=== PATIENT | female | born 1945 | race Caucasian/White ===

== ENCOUNTER 2018-07-24 09:27 | Emergency (ER) | payer MEDICARE, OTHER, SELFPAY ==
[2018-07-24 09:30] VITALS: BP 148/85; PULSE 65; RESP 18; TEMP 36.7; O2SAT 100
[2018-07-24 09:49] LABS: Bilirubin Negative (Negative); Blood Negative (Negative); Clarity Clear; Glucose Negative (Negative); Ketones Trace mg/dL (Negative); Leukocyte Esterase Negative (Negative); Nitrite Negative (Negative); Specific Gravity >= 1.030 (1.005-1.025); Urobilinogen 0.2 EU/dL (Up TO 0.2)
[2018-07-24 10:01] LABS: Bacteria Moderate HPF (Negative); C & S Indicated? Yes; Casts Negative LPF (Negative); Crystals Negative HPF (Negative); Epithelial Cells Few HPF (Negative); Mucus Moderate (Negative); RBC Negative (0-2)
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
[2018-07-24] MEDS: LEVOFLOXACIN 500 MG, LEVOFLOXACIN 250 MG 750 MG PO (10:37)
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
[2018-07-24 11:13] LABS: ALT 19 U/L (12-78); AST 21 U/L (15-37); Albumin 3.8 g/dL (3.4-5.0); Alkaline Phosphatase 88 U/L (46-116); Anion Gap 6.8 mmol/L (3-11); BUN 20 mg/dL (7-18); Bilirubin, Total 0.6 mg/dL (0.2-1.0); CO2 27.2 mmol/L (21.0-32.0); CREATININE 1.12 mg/dL (0.55-1.02); Calcium 8.6 mg/dL (8.5-10.1); Chloride 104 mmol/L (98-107); Estimated GFR 47.96 (mL/min/1.73m2); Glucose 103 mg/dL (70-100); Potassium 3.9 mmol/L (3.5-5.1); Sodium 138 mmol/L (136-145); Total Protein 7.1 g/dL (6.4-8.2)
[2018-07-24 11:16] LABS: Abs Immature Grans 0.01 k/cumm (0.0-0.09); Absolute Basophil Count 0.02 k/cumm (0.0-0.2); Absolute Lymphocyte Count 0.76 k/cumm (1.2-3.4); Absolute Monocyte Count 0.39 k/cumm (0.11-0.7); Absolute Neutrophil Count 3.19 k/cumm (1.2-6.7); Basophils % 0.4; Eosinophils % 2.2; HCT 40.1 % (36.0-46.0); HGB 13.6 g/dL (12.0-15.5); Immature Grans % 0.2; Mean Corp. HGB Concentration 33.9 g/dL (32.0-36.0); Mean Corpuscular Hemoglobin 32.3 pg (27.0-33.0); Mean Corpuscular Volume 95.2 fL (80-95); Mean Platelet Volume 10.2 fL (8.0-11.0); Monocytes % 8.7; Neutrophils % 71.5; Platelet Count 189 x1000/uL (130-400); RBC 4.21 m/cumm (4.00-5.20); RBC Distribution Width 12.3 % (11.7-14.6); White Blood Cell Count 4.47 k/cumm (4.4-10.8)
[2018-07-24 12:07] VITALS: BP 148/85; PULSE 65; RESP 18; TEMP 36.7; O2SAT 100
== END 2018-07-24 12:07 | disposition home or self-care (01) ==
PROVIDERS: Emergency Provider Emergency Medicine; PCP Family Medicine
DX: N39.0 Urinary tract infection, site not specified (principal); B96.4 Proteus (mirabilis) (morganii) as the cause of diseases classified elsewhere; R41.0 Disorientation, unspecified; G20 Parkinson's disease
CPT/HCPCS: 36415; 80053; 87077; 99283; 81003; 81015; 85025; 87086; 87186

== ENCOUNTER 2018-10-04 10:19 | Outpatient (CLI) | payer MEDICARE, OTHER, SELFPAY ==
[2018-10-04 12:17] LABS: Ferritin 51 ng/mL (8-388)
== END 2018-10-04 10:39 ==
PROVIDERS: PCP Family Medicine; Visit Provider Nurse Practitioner
DX: M25.50 Pain in unspecified joint (principal)
CPT/HCPCS: 36415; 82728

== ENCOUNTER 2018-11-02 02:59 | Outpatient (CLI) | payer MEDICARE, OTHER, SELFPAY | END 2018-11-02 03:19 | PROVIDERS: PCP Family Medicine; Visit Provider Family Medicine | DX: G47.61 Periodic limb movement disorder (principal); Z53.8 Procedure and treatment not carried out for other reasons | CPT/HCPCS: 36415; 82728; 83540; 83550; 84443 ==

== ENCOUNTER 2018-11-09 07:33 | Outpatient (CLI) | payer MEDICARE, OTHER, SELFPAY | END 2018-11-09 07:53 | PROVIDERS: PCP Family Medicine; Visit Provider Family Medicine | DX: G47.61 Periodic limb movement disorder (principal); D75.89 Other specified diseases of blood and blood-forming organs; Z53.8 Procedure and treatment not carried out for other reasons | CPT/HCPCS: 82728; 83540; 83550; 84443 ==

== ENCOUNTER 2019-01-26 02:15 | Outpatient (CLI) | payer MEDICARE, OTHER, SELFPAY ==
[2019-01-26 14:27] LABS: Iron 68 ug/dL (50-175); Total Iron Binding Capacity 259 ug/dL (250-450); Transferrin Sat 26 % (15-50)
[2019-01-26 14:43] LABS: Ferritin 133 ng/mL (8-388)
== END 2019-01-26 02:35 ==
PROVIDERS: PCP Family Medicine; Visit Provider Family Medicine
DX: R53.83 Other fatigue (principal); D50.9 Iron deficiency anemia, unspecified; G20 Parkinson's disease; G25.81 Restless legs syndrome; M25.50 Pain in unspecified joint
CPT/HCPCS: 36415; 82728; 83540; 83550

== ENCOUNTER 2019-03-01 08:03 | Outpatient (REF) | payer MEDICARE, OTHER, SELFPAY ==
[2019-03-01 09:55] LABS: Bilirubin Negative (Negative); Blood Negative (Negative); Clarity Clear; Glucose Negative (Negative); Ketones Negative (Negative); Leukocyte Esterase Negative (Negative); Nitrite Negative (Negative); Specific Gravity 1.015 (1.005-1.025); Urobilinogen 0.2 EU/dL (Up TO 0.2); pH 6.5 (5-8)
== END 2019-03-01 08:23 ==
LOC: LBN 08:03
PROVIDERS: PCP Family Medicine; Visit Provider Family Medicine
DX: N39.0 Urinary tract infection, site not specified (principal)
CPT/HCPCS: 81003

== ENCOUNTER 2019-04-02 08:34 | Outpatient (CLI) | payer MEDICARE, OTHER, SELFPAY ==
--- NOTE | 2019-04-02 08:20 | DI.RAD_ITS ---
SYMPTOM/DIAGNOSIS: LEFT SHOULDER: There is mild spurring at the undersurface of the acromion. Spurring is seen at the glenoid and lesser tuberosity. The humeral head is normally positioned. IMPRESSION: Mild to moderate degenerative changes.
== END 2019-04-02 08:54 ==
PROVIDERS: PCP Family Medicine; Referring Provider Family Medicine; Visit Provider Student in an Organized Health Care Education/Training Program
DX: M25.512 Pain in left shoulder (principal); M19.012 Primary osteoarthritis, left shoulder; G89.29 Other chronic pain
CPT/HCPCS: 99202; 99213; 73030

== ENCOUNTER → 2019-05-14 07:56 | Outpatient (BNVA) | payer MEDICARE, OTHER, SELFPAY | PROVIDERS: PCP Family Medicine; Referring Provider Family Medicine; Visit Provider Student in an Organized Health Care Education/Training Program | DX: M25.512 Pain in left shoulder (principal); G20 Parkinson's disease; G89.29 Other chronic pain | CPT/HCPCS: 99213 ==

== ENCOUNTER 2019-07-31 09:05 | Outpatient (CLI) | payer MEDICARE, OTHER, SELFPAY ==
[2019-07-31 09:24] LABS: HCT 41.7 % (36.0-46.0); HGB 13.9 g/dL (12.0-15.5); Mean Corp. HGB Concentration 33.3 g/dL (32.0-36.0); Mean Corpuscular Hemoglobin 32.3 pg (27.0-33.0); Mean Corpuscular Volume 96.8 fL (80-95); Mean Platelet Volume 9.8 fL (8.0-11.0); Platelet Count 236 x1000/uL (130-400); RBC 4.31 m/cumm (4.00-5.20); RBC Distribution Width 12.4 % (11.7-14.6)
[2019-07-31 10:21] LABS: Iron 95 ug/dL (50-175)
[2019-07-31 10:29] LABS: ESR 9 mm/hr (0-30)
[2019-07-31 10:34] LABS: Ferritin 95 ng/mL (8-388)
== END 2019-07-31 09:25 ==
PROVIDERS: PCP Family Medicine; Visit Provider Family Medicine
DX: E61.1 Iron deficiency (principal); G25.81 Restless legs syndrome; R41.3 Other amnesia
CPT/HCPCS: 36415; 85027; 85652; 82728; 83540

== ENCOUNTER 2020-12-03 04:23 | Outpatient (CLI) | payer MEDICARE, OTHER, SELFPAY ==
[2020-12-03 11:12] LABS: Hemoglobin A1C 5.5 % (<5.7)
[2020-12-03 11:38] LABS: Calculated LDL 92 mg/dL (<100); Cholesterol 172 mg/dL (<200); HDL Cholesterol 62 mg/dL (40-60); Triglyceride 90 mg/dL (<150)
== END 2020-12-03 04:43 ==
PROVIDERS: PCP Family Medicine; Visit Provider Nurse Practitioner
DX: R73.03 Prediabetes (principal); L40.9 Psoriasis, unspecified
CPT/HCPCS: 36415; 80061; 83036

== ENCOUNTER 2021-01-26 01:10 | Outpatient (CLI) | payer MEDICARE, OTHER, SELFPAY ==
--- NOTE | 2021-01-26 | DI.CT_ITS ---
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 GARCIA. TECHNIQUE: Imaging Protocol: Axial computed tomography images with coronal and sagittal reformatted images were created and reviewed COMPARISON: MR MRI - BRAIN WO CONTRAST from 03/25/2010 FINDINGS: There are no skull fractures nor fluid in the visualized paranasal sinuses. There is a right sided shunt which enters via the right frontal bone and into the right lateral ventr icle. Its distal tip is at the level of the foramen of Monro. There is, however, no asymmetry in th e size of the lateral ventricles and no shift of midline structures no evidence of intracranial hemor rhage, intra or extra-axial. No prominent encephalomalacia along the course of the shunt. The amount of involutional changes consistent with the patient's age. Size of the lateral ventricles slightly smaller than on the MRI scan of March 2010. Size of the 3rd ve ntricle is unchanged. Fourth ventricle is not enlarged IMPRESSION: No acute intracranial findings on this noninfused CT scan of the brain. The distal tip of the right-sided shunt is at the level of the right foramen of Monro. However, ther e is no asymmetry in the size of the ventricles. RADIATION DOSE DELIVERED: 630.01mGy.cm Total DLP DATA REPOSITORY: All CT scans at this facility are submitted to the National Radiology Data Registry (NRDR) Dose Index Registry (DIR) with the [employer] ([employer]). RADIATION OPTIMIZATION: All CT scans at this facility use at least one of these dose optimization te chniques: automated exposure control; mA and/or kV adjustment per patient size (includes targeted exa ms where dose is matched to clinical indication); or iterative reconstruction.
== END 2021-01-26 01:30 ==
PROVIDERS: PCP Family Medicine; Visit Provider Psychiatry & Neurology Neurology
DX: G20 Parkinson's disease (principal); F02.80 Dementia in other diseases classified elsewhere, unspecified severity, without behavioral disturbance, psychotic disturbance, mood disturbance, and anxiety; G91.2 (Idiopathic) normal pressure hydrocephalus; Z98.2 Presence of cerebrospinal fluid drainage device
CPT/HCPCS: 70450

== ENCOUNTER 2021-07-06 14:44 | Outpatient (CLI) | payer MEDICARE, OTHER, SELFPAY ==
--- NOTE | 2021-07-06 14:15 | DI.RAD_ITS ---
Exam(s) XR ANKLE LT COMPLETE EXAM: XR ANKLE LT COMPLETE CLINICAL HISTORY: left ankle injury. TECHNIQUE: 2D digital imaging was performed. COMPARISON: No exams were available for comparison FINDINGS: There is soft tissue swelling laterally. There is no oblique nondisplaced fracture distal fibula. N o widening of the mortise. Medial malleolus and posterior malleolus are intact. Talar dome unremark able. Large inferior calcaneal spur is incidentally noted. No osseous tarsal coalition. IMPRESSION: Nondisplaced distal fibular fracture. No widening of the mortise evident on these nonstress views. DATA REPOSITORY: RADIATION DOSE DELIVERED:
== END 2021-07-06 14:45 | disposition home or self-care (01) ==
LOC: DIORS 14:44
PROVIDERS: PCP Family Medicine; Referring Provider Family Medicine; Visit Provider Physician Assistant
DX: S99.912A Unspecified injury of left ankle, initial encounter (principal); S82.832A Other fracture of upper and lower end of left fibula, initial encounter for closed fracture; X50.9XXA Other and unspecified overexertion or strenuous movements or postures, initial encounter; G20 Parkinson's disease
CPT/HCPCS: 99213; 73610

== ENCOUNTER 2021-08-06 15:05 | Outpatient (CLI) | payer MEDICARE, OTHER, SELFPAY ==
--- NOTE | 2021-08-06 11:45 | DI.RAD_ITS ---
Exam(s) XR ANKLE LT COMPLETE EXAM: XR ANKLE LT COMPLETE CLINICAL HISTORY: F/U LEFT DISTAL FIB FRACTURE. TECHNIQUE: 2D digital imaging was performed. COMPARISON: CR XR ANKLE LT COMPLETE from 07/06/2021 FINDINGS: Fracture of the distal fibula is again noted. Fracture line still visible. No further displacement. No widening of the mortise. On the lateral view there is subtle suggestion of a avulsion fracture of the posterior malleolus. This is more evident than on the lateral view of the prior study. Talar dome appears unremarkable. Large inferior calcaneal spur is again noted. IMPRESSION: Incompletely healed distal fibular fracture. Posterior malleolus fracture also noted. DATA REPOSITORY: RADIATION DOSE DELIVERED:
== END 2021-08-06 15:06 | disposition home or self-care (01) ==
LOC: DIORS 15:06
PROVIDERS: PCP Family Medicine; Referring Provider Family Medicine; Visit Provider Student in an Organized Health Care Education/Training Program
DX: S82.832D Other fracture of upper and lower end of left fibula, subsequent encounter for closed fracture with routine healing; X58.XXXD Exposure to other specified factors, subsequent encounter
CPT/HCPCS: 99212; 73610

== ENCOUNTER 2022-08-04 03:40 | Outpatient (CLI) | payer MEDICARE, OTHER, SELFPAY ==
[2022-08-04 14:43] LABS: HCT 42.7 % (36.0-46.0); HGB 14.3 g/dL (11.2-15.7); MCH 31.6 pg (27.0-33.0); MCHC 33.5 % (32.0-36.0); MCV 95 fL (80-95); Platelet Count 240 10^3/uL (130-400); RBC 4.52 10^6/uL (3.93-5.22); RDW 11.8 % (11.7-14.6); RDW-SD 40.9 fL; WBC 8.41 10^3/uL (4.4-10.8)
[2022-08-04 15:37] LABS: ALT 13 U/L (14-59); AST 14 U/L (15-37); Albumin 3.8 g/dL (3.4-5.0); Alkaline Phosphatase 106 U/L (46-116); Anion Gap 7.7 mmol/L (3-11); BUN 23 mg/dL (7-18); Bilirubin, Total 0.5 mg/dL (0.2-1.0); CO2 30.3 mmol/L (21.0-32.0); CREATININE 1.2 mg/dL (0.55-1.02); Calcium 9.1 mg/dL (8.5-10.1); Chloride 104 mmol/L (98-107); Estimated GFR 47.21 (mL/min/1.73m2); Glucose 80 mg/dL (74-106); Potassium 3.8 mmol/L (3.5-5.1); Sodium 142 mmol/L (136-145); TSH (W/Ref FT4) 2.16 uIU/mL (0.36-3.74); Total Protein 7.4 g/dL (6.4-8.2)
== END 2022-08-04 03:41 | disposition home or self-care (01) ==
PROVIDERS: PCP Family Medicine; Visit Provider Family Medicine
DX: G91.2 (Idiopathic) normal pressure hydrocephalus (principal); R63.4 Abnormal weight loss; R41.3 Other amnesia
CPT/HCPCS: 36415; 80053; 85027; 84443